=== PATIENT | male | born 1965 | race Caucasian/White ===

== ENCOUNTER 2016-11-11 08:54 | Observation (INO) | payer BC ==
[2016-11-11] MEDS ORDERED: Sodium Chloride 0.9% 10 ML Syringe FLUSH PRN (09:00)
[2016-11-11] MEDS ORDERED: Sodium Chloride 0.9% 2.5 ML Syringe FLUSH PRN (09:00)
[2016-11-11] MEDS ORDERED: Aspirin 81 MG Tab.Chew PO ONE (09:00)
--- NOTE | 2016-11-11 09:04 | EDM.PDOC ---
ED HPI GENERAL MEDICAL PROBLEM - General Stated Complaint: CHEST PAIN Time Seen by Provider: 11/11/16 09:00 - History of Present Illness INITIAL COMMENTS - FREE TEXT/NARRATIVE: HISTORY AND PHYSICAL: History of present illness: The patient is a 51-year-old male with no stated medical history who presents with complaints of midsternal chest pain which is sharp in character it started when he woke this morning at 6 AM, 3 hours ago. The patient denies any cardiac or pulmonary disease and has never done a stress test and presents after having a completely normal day yesterday and sleeping the whole night but waking with the discomfort. When he woke the pain was 8/10 and was not radiating and not associated with diaphoresis nausea or shortness of breath. He does state that when he got up and moved around it seemed to be worse. He did not take any medications prior to coming here and does not take any prescription or over-the- counter medications regularly. Currently in the ED it is reduced to a 4/10. Is no abdominal pain and no nausea no leg pain and no swelling. The patient denies any family history or social history. The patient is a armored car guard and driver but does not do any long trips only short trips and denies any calf pain or swelling. Review of systems: As per history of present illness and below otherwise all systems reviewed and negative. Past medical history: As per history of present illness and as reviewed below otherwise noncontributory. Surgical history: As per history of present illness and as reviewed below otherwise noncontributory. Social history: No reported history of drug or alcohol abuse. Family history: As per history of present illness and as reviewed below otherwise noncontributory. Physical exam: General: Well-developed overweight male who is nontoxic and speaking clearly and easily. His vital [place] HEENT: Atraumatic, normocephalic, negative for conjunctival pallor or scleral icterus, mucous membranes moist, throat clear, neck supple, nontender, trachea midline. Lungs: Clear to auscultation, breath sounds equal bilaterally, chest nontender. There are no defects deformities or crepitus appreciated Heart: S1S2, regular, negative for clicks, rubs, or JVD. Abdomen: Soft, nondistended, nontender. There is a soft reducible umbilical hernia Negative for masses or hepatosplenomegaly. Negative for costovertebral tenderness. Pelvis: Stable nontender. Genitourinary: Deferred. Rectal: Deferred. Extremities: Atraumatic, negative for cords or calf pain. Neurovascular unremarkable. No pedal edema or leg asymmetry Neuro: Awake, alert, oriented. Cranial nerves II through XII unremarkable. Cerebellum unremarkable. Motor and sensory unremarkable throughout. Exam nonfocal. Diagnostics: EKG x 2 chest x-ray CBC CMP INR troponin Therapeutics: IV O2 monitor aspirin nitroglycerin sublingual, NTP 0925: Patient's chest pain went from a 4/10 to a 01/ after 2 nitroglycerin sublingual. The patient did drop his blood pressure and it responded to IV fluids. We'll place nitro paste and repeat EKG All testing results were discussed with the patient and he is agreeable for admission for observation serial EKGs and enzymes. The case was discussed with our hospitalist Dr. Strickland at 10:15 AM and he also accepts the patient for observation admission Impression: Chest pain rule out Acute coronary syndrome Definitive disposition and diagnosis as appropriate pending reevaluation and review of above. chest Pain Score (Numeric/FACES): 3 - Related Data Allergies Allergy/AdvReac Type Severity Reaction Status Date / Time No Known Allergies Allergy Verified 11/11/16 09:01 Home Meds: Home Meds . [No Known Home Meds] 11/11/16 [History] ED ROS GENERAL - Review of Systems Review Of Systems: ROS reveals no pertinent complaints other than HPI. ED EXAM, GENERAL - Physical Exam Exam: See Below (See dictation) Course - Vital Signs Last Recorded V/S: Last Vital Signs Temp 35.9 C 11/11/16 09:01 Pulse 65 11/11/16 10:15 Resp 16 11/11/16 10:15 BP 128/79 11/11/16 10:15 Pulse Ox 99 11/11/16 10:15 - Orders/Labs/Meds Orders: Active Orders 24 hr Category Date Time Status Patient Status [ADT] Stat ADT 11/11/16 10:16 Active Cardiac Monitoring [RC] . DIRECTED Care 11/11/16 09:00 Active EKG 12 Lead [EKG Documentation Completion] [RC] STAT Care 11/11/16 09:29 Active EKG Documentation Completion [RC] STAT Care 11/11/16 09:00 Active Oxygen Therapy, ED [RC] ASDIRECTED Care 11/11/16 09:00 Active Pulse Oximetry [RC] ASDIRECTED Care 11/11/16 09:00 Active Chest 1V Frontal [CR] Stat Exams 11/11/16 09:00 Taken Sodium Chloride 0.9% [Normal Saline] 1,000 ml Med 11/11/16 09:30 Active IV ASDIRECTED Sodium Chloride 0.9% [Saline Flush] Med 11/11/16 09:00 Active 10 ml FLUSH ASDIRECTED PRN Sodium Chloride 0.9% [Saline Flush] Med 11/11/16 09:00 Active 2.5 ml FLUSH ASDIRECTED PRN Saline Lock Insert [OM.PC] Stat Oth 11/11/16 09:00 Ordered Medication Orders Sodium Chloride (Normal Saline) 1,000 mls @ 999 mls/hr IV ASDIRECTED MIMI Sodium Chloride (Saline Flush) 10 ml FLUSH ASDIRECTED PRN PRN Reason: Keep Vein Open Last Admin: 11/11/16 09:07 Dose: 10 ml Sodium Chloride (Saline Flush) 2.5 ml FLUSH ASDIRECTED PRN PRN Reason: Keep Vein Open Last Admin: 11/11/16 09:07 Dose: 2.5 ml Labs: Laboratory Tests 11/11/16 11/11/16 11/11/16 Range/Units 09:02 09:02 09:02 WBC 8.04 (4.0-11.0) K/uL RBC 5.27 (4.50-5.90) M/uL Hgb 15.9 (13.0-17.0) g/dL Hct 46.6 (38.0-50.0) % MCV 88.4 (80.0-98.0) fL MCH 30.2 (27.0-32.0) pg MCHC 34.1 (31.0-37.0) g/dL RDW Std Deviation 42.7 (28.0-62.0) fl RDW Coeff of Thelma 13 (11.0-15.0) % Plt Count 165 (150-400) K/uL MPV 11.80 (7.40-12.00) fL Neut % (Auto) 71.3 (48.0-80.0) % Lymph % (Auto) 18.3 (16.0-40.0) % [place] % (Auto) 9.1 (0.0-15.0) % Eos % (Auto) 1.1 (0.0-7.0) % Baso % (Auto) 0.2 (0.0-1.5) % Neut # 5.7 (1.4-5.7) K/uL Lymph # 1.5 (0.6-2.4) K/uL [place] # 0.7 (0.0-0.8) K/uL Eos # 0.1 (0.0-0.7) K/uL Baso # 0.0 (0.0-0.1) K/uL Nucleated RBC % 0.0 /100WBC Nucleated RBCs # 0 K/uL INR 1.02 (0.86-1.11) Sodium 139 (136-146) mmol/L Potassium 3.7 (3.5-5.1) mmol/L Chloride 108 (98-110) mmol/L Carbon Dioxide 26 (21-31) mmol/L BUN 16 (6.0-23.0) mg/dL Creatinine 0.9 (0.6-1.5) mg/dL Est Cr Clr Drug Dosing 91.81 mL/min Estimated GFR (MDRD) > 60.0 ml/min Glucose 104 (60-110) mg/dL Calcium 8.9 (8.8-10.8) mg/dL Total Bilirubin 1.1 (0.1-1.5) mg/dL AST 27 (5-40) IU/L ALT 44 (8-54) IU/L Alkaline Phosphatase 73 (40-150) Troponin I (0.0-0.29) NG/ML Total Protein 7.2 (6.0-8.0) g/dL Albumin 4.1 (3.5-5.0) g/dL Globulin 3.1 (2.0-3.5) g/dL Albumin/Globulin Ratio 1.3 (1.3-2.8) 11/11/16 Range/Units 09:02 WBC (4.0-11.0) K/uL RBC (4.50-5.90) M/uL Hgb (13.0-17.0) g/dL Hct (38.0-50.0) % MCV (80.0-98.0) fL MCH (27.0-32.0) pg MCHC (31.0-37.0) g/dL RDW Std Deviation (28.0-62.0) fl RDW Coeff of Thelma (11.0-15.0) % Plt Count (150-400) K/uL MPV (7.40-12.00) fL Neut % (Auto) (48.0-80.0) % Lymph % (Auto) (16.0-40.0) % [place] % (Auto) (0.0-15.0) % Eos % (Auto) (0.0-7.0) % Baso % (Auto) (0.0-1.5) % Neut # (1.4-5.7) K/uL Lymph # (0.6-2.4) K/uL [place] # (0.0-0.8) K/uL Eos # (0.0-0.7) K/uL Baso # (0.0-0.1) K/uL Nucleated RBC % /100WBC Nucleated RBCs # K/uL INR (0.86-1.11) Sodium (136-146) mmol/L Potassium (3.5-5.1) mmol/L Chloride (98-110) mmol/L Carbon Dioxide (21-31) mmol/L BUN (6.0-23.0) mg/dL Creatinine (0.6-1.5) mg/dL Est Cr Clr Drug Dosing mL/min Estimated GFR (MDRD) ml/min Glucose (60-110) mg/dL Calcium (8.8-10.8) mg/dL Total Bilirubin (0.1-1.5) mg/dL AST (5-40) IU/L ALT (8-54) IU/L Alkaline Phosphatase (40-150) Troponin I < 0.10 (0.0-0.29) NG/ML Total Protein (6.0-8.0) g/dL Albumin (3.5-5.0) g/dL Globulin (2.0-3.5) g/dL Albumin/Globulin Ratio (1.3-2.8) Meds: Medications Generic Name Dose Route Start Last Admin Trade Name Freq PRN Reason Stop Dose Admin Sodium Chloride 1,000 mls @ 999 mls/hr 11/11/16 09:30 Normal Saline IV ASDIRECTED MIMI Sodium Chloride 10 ml 11/11/16 09:00 11/11/16 09:07 Saline Flush FLUSH 10 ml ASDIRECTED PRN Administration Keep Vein Open Sodium Chloride 2.5 ml 11/11/16 09:00 11/11/16 09:07 Saline Flush FLUSH 2.5 ml ASDIRECTED PRN Administration Keep Vein Open Discontinued Medications Generic Name Dose Route Start Last Admin Trade Name Freq PRN Reason Stop Dose Admin Aspirin 324 mg 11/11/16 09:00 11/11/16 09:06 Aspirin PO 11/11/16 09:01 324 mg ONETIME ONE Administration Nitroglycerin 0.4 mg 11/11/16 09:00 11/11/16 09:11 Nitrostat SL 11/11/16 09:11 0.4 mg Q5M MIMI Administration Nitroglycerin 0.5 gm 11/11/16 09:34 Nitro-Bid 2% TOP 11/11/16 09:35 ONETIME ONE Departure - Departure Time of Disposition: 10:18 Disposition: Refer to Observation Condition: good Clinical Impression: Acute coronary syndrome - My Orders Last 24 Hours: My Active Orders 11/11/16 09:00 Cardiac Monitoring [RC] . DIRECTED EKG Documentation Completion [RC] STAT Oxygen Therapy, ED [RC] ASDIRECTED Pulse Oximetry [RC] ASDIRECTED Chest 1V Frontal [CR] Stat Sodium Chloride 0.9% [Saline Flush] 10 ml FLUSH ASDIRECTED PRN Sodium Chloride 0.9% [Saline Flush] 2.5 ml FLUSH ASDIRECTED PRN Saline Lock Insert [OM.PC] Stat 11/11/16 09:29 EKG 12 Lead [EKG Documentation Completion] [RC] STAT 11/11/16 09:30 Sodium Chloride 0.9% [Normal Saline] 1,000 ml IV ASDIRECTED 11/11/16 10:16 Patient Status [ADT] Stat - Assessment/Plan Last 24 Hours: My Active Orders 11/11/16 09:00 Cardiac Monitoring [RC] . DIRECTED EKG Documentation Completion [RC] STAT Oxygen Therapy, ED [RC] ASDIRECTED Pulse Oximetry [RC] ASDIRECTED Chest 1V Frontal [CR] Stat Sodium Chloride 0.9% [Saline Flush] 10 ml FLUSH ASDIRECTED PRN Sodium Chloride 0.9% [Saline Flush] 2.5 ml FLUSH ASDIRECTED PRN Saline Lock Insert [OM.PC] Stat 11/11/16 09:29 EKG 12 Lead [EKG Documentation Completion] [RC] STAT 11/11/16 09:30 Sodium Chloride 0.9% [Normal Saline] 1,000 ml IV ASDIRECTED 11/11/16 10:16 Patient Status [ADT] Stat
[2016-11-11] MEDS: Nitroglycerin 0.4 MG Tab.SL SL SCH ×3 (09:07→14:15)
[2016-11-11] MEDS ORDERED: Sodium Chloride 0.9% 1,000 ML IV SCH (09:30)
[2016-11-11 09:34] LABS: CHLORIDE,CL 108 mmol/L (98-110); SODIUM,NA 139 mmol/L (136-146)
[2016-11-11] MEDS ORDERED: Nitroglycerin 2% Oint 1 GM UD Packet TOP ONE (09:34)
[2016-11-11] MEDS ORDERED: Acetaminophen 325 MG Tab PO PRN (13:11)
[2016-11-11] MEDS ORDERED: Ondansetron 4 MG Tab.DIS PO PRN (13:11)
--- NOTE | 2016-11-11 13:18 | PCM.HP ---
H&P History of Present Illness - General Admit Problem/Dx: Admission Diagnosis/Problem Admission Diagnosis/Problem Acute coronary syndrome - History of Present Illness Initial Comments - Free Text/Narative: 51 yo male who woke up at 6 this morning with substernal chest pain. He denied any shortness of breath or dizziness. He has been coughing and reports a cold. He was seen in the ED and received ASA and nitro. Which resolved his pain. His pain lasted about three hours. Initial EKG and troponin did not show any signs of acute ischemia chest Pain Score (Numeric/FACES): 3 - Related Data Allergies/Adverse Reactions: Allergies Allergy/AdvReac Type Severity Reaction Status Date / Time No Known Allergies Allergy Verified 11/11/16 09:01 Home Medications: Home Meds . [No Known Home Meds] 11/11/16 [History] Past Medical History - Past Health History Medical/Surgical History: Denies Medical/Surgical History Social & Family History - Family History Family Medical History: Noncontributory - Tobacco Use Smoking Status *Q: Never Smoker - Caffeine Use Caffeine Use: Reports: Coffee - Recreational Drug Use Recreational Drug Use: No H&P Review of Systems - Review of Systems: Review Of Systems: See Below General: Reports: no symptoms HEENT: Reports: no symptoms Pulmonary: Reports: No Symptoms Cardiovascular: Reports: no symptoms Gastrointestinal: Reports: No symptoms Genitourinary: Reports: no symptoms Musculoskeletal: Reports: no symptoms Skin: Reports: no symptoms Psychiatric: Reports: no symptoms Neurological: Reports: No Symptoms Hematologic/Lymphatic: Reports: no symptoms Immunologic: Reports: no symptoms Exam - Exam Exam: See Below - Vital Signs Vital Signs: Last Vital Signs Temp 36.6 C 11/11/16 10:35 Pulse 61 11/11/16 10:35 Resp 16 11/11/16 10:35 BP 128/75 11/11/16 10:35 Pulse Ox 98 11/11/16 10:35 Weight: 109.769 kg - Exam General: alert, oriented Neck: supple, trachea midline. No: JVD Lungs: Clear to auscultation, Normal respiratory effort Cardiovascular: regular rate, regular rhythm Abdomen: normal bowel sounds, soft Extremities: normal inspection, normal pulses. No: edema - Patient Data Result Diagrams: 11/11/16 09:02 11/11/16 09:02 EKG INTERPRETATION Rhythm: NSR Rate (beats/min): 64 ST-T: other (T-wave inversions in all leads) *Q Meaningful Use (ADM) - VTE *Q VTE Criteria *Q: - Stroke *Q Stroke Criteria *Q: - AMI *Q AMI Criteria *Q: Problem List Initiated/Reviewed/Updated: Yes Orders Last 24hrs: Active Orders 24 hr Category Date Time Status Antiembolic Devices [RC] PER UNIT ROUTINE Care 11/11/16 13:14 Ordered Intake and Output [RC] QSHIFT Care 11/11/16 13:13 Ordered Oxygen Therapy [RC] PRN Care 11/11/16 13:06 Ordered Up With Assistance [RC] ASDIRECTED Care 11/11/16 13:11 Ordered VTE/DVT Education [RC] PER UNIT ROUTINE Care 11/11/16 13:06 Ordered Vital Signs [RC] Q4H Care 11/11/16 13:06 Ordered Heart Healthy Diet [DIET] Diet 11/11/16 Lunch Active MAGNESIUM [CHEM] Routine Lab 11/11/16 12:57 Ordered TROPONIN I [CHEM] Q6H Lab 11/11/16 15:00 Ordered TROPONIN I [CHEM] Q6H Lab 11/11/16 21:00 Ordered Acetaminophen [Tylenol] Med 11/11/16 13:11 Ordered 650 mg PO Q4H PRN Enoxaparin [Lovenox] Med 11/12/16 09:00 Ordered 40 mg SUBCUT DAILY Ondansetron [Zofran ODT] Med 11/11/16 13:11 Ordered 4 mg PO Q4H PRN Sequential Compression Device [OM.PC] Per Unit Routine Oth 11/11/16 13:13 Ordered Resuscitation Status Routine Resus Stat 11/11/16 13:06 Ordered Medication Orders Sodium Chloride (Normal Saline) 1,000 mls @ 999 mls/hr IV ASDIRECTED MIMI Last Admin: 11/11/16 09:30 Dose: 999 mls/hr Sodium Chloride (Saline Flush) 10 ml FLUSH ASDIRECTED PRN PRN Reason: Keep Vein Open Last Admin: 11/11/16 09:07 Dose: 10 ml Sodium Chloride (Saline Flush) 2.5 ml FLUSH ASDIRECTED PRN PRN Reason: Keep Vein Open Last Admin: 11/11/16 09:07 Dose: 2.5 ml Assessment/Plan Comment:: 65 yo male who presents with chest pain. He was monitored overnight on telemetry and ruled out for acute coronary syndrome with serial negative cardiac enzymes. Patient was discharged home and a referral to outpatient cardiac stress testing was made.
[2016-11-12] MEDS ORDERED: Enoxaparin 40 MG/0.4 ML Syringe SUBCUT SCH (09:00)
[2016-11-12 09:14] VITALS: BP 143/92
--- NOTE | 2016-11-13 16:18 | CR ---
EXAM DATE: 11/11/16 PATIENT'S AGE: 51 Patient: LISSETT RAMIREZ Facility: [place], [place] Site . Site : [id number] Study: XRay Chest [id number]/18/2017 9:16:24 AM Ordering Physician: Cody Linder Final Report: INDICATION: CHEST PAIN TECHNIQUE: Portable AP upright chest film submitted. COMPARISON: None. FINDINGS: Heart size and pulmonary vasculature within normal limits. Lung merrill are clear. IMPRESSION: No active disease. Dictated by Andrews Nielsen MD @ 11/11/2016 9:18:51 AM Dictated by: Andrews Nielsen MD @ 11/11/2016 09:18:58 (Electronic Signature) Report Signed by Proxy and Original Signed Document filed in the Medical Record. MTDD
== END 2016-11-12 12:32 | disposition home or self-care (01) ==
LOC: MW.ED 08:54 → MW.MS 10:16 → UNDOADMOB 10:16
PROVIDERS: ADMIT Internal Medicine; ATTEND Internal Medicine
DX: I24.9 Acute ischemic heart disease, unspecified (principal)
CPT/HCPCS: 36415; 71010; 80053; 83735; 84484; 85025; 85610; 93005; 96360; 96372; 99285; A9270; G0378; J1650; J7040